=== PATIENT | male | born 2000 | race Caucasian/White ===

== ENCOUNTER 2018-02-17 17:16 | Observation (INO) ==
--- NOTE | 2018-02-17 19:13 | General Surg History&Physical ---
Date of Encounter: 02/17/18 Time of Encounter: 19:11 Assessment and Plan (1) Appendicitis Current Visit: Yes Status: Acute 17M with acute appendicitis NPO IVF abx OR today The assessment and plan as outlined above was discussed with the patient and/or family members who expressed understanding and agreement. All questions were answered. Qualifiers: Appendicitis type: acute appendicitis Acute appendicitis type: with localized peritonitis Qualified Code(s): K35.3 - Acute appendicitis with localized peritonitis History of Present Illness Chief complaint: abdominal pain HPI: Mr. Ashford is a 17 year old male with one day history of periumbilical pain with migration to the RLQ with associated nausea and vomiting. Subjective chills, no definitive fever. A CT scan was obtained at an OSH, which was evaluated by me, which demonstrated thickening of the appendix with associated periappendiceal fluid and appendicolith. Past Med Surg Social Fam HX - Past Medical History Medical history: no medical history Psychiatric history: no psych history - Past Surgical History Surgical History: no surgical history - Social History Smoking Status: Never smoker Smokeless Tobacco Status: Yes Alcohol use: none Drug use: none Medications and Allergies 3 Allergy/AdvReac Type Severity Reaction Status Date / Time No Known Allergies Allergy Verified 11/29/16 00:32 Review of Systems All systems PM: The remainder of the systems were reviewed and are negative General Surgery Exam Initial Vital Signs Temp Pulse Resp BP Pulse Ox 98.6 F 73 14 133/73 99 02/17/18 19:02 02/17/18 19:02 02/17/18 19:02 02/17/18 19:02 02/17/18 19:02 - General physical appearance no distress - Eyes normal ocular movement - ENT normocephalic - Neck no lymphadectomy - Respiratory normal expansion, normal respiratory effort - Cardiovascular Cardiovascular exam: Present: RRR - Abdomen Abdomen general surgery: Present: soft, tender Abdominal Tenderness: Present: RLQ (at McBurney's point) - Integumentary Integumentary general surgery: Present: warm and dry - Neurologic Present: CN 2-12 grossly intact - Musculoskeletal Present: normal gait, normal posture - Psychiatric Psychiatric general surgery: Present: A&Ox3 Results - Labs All other labs normal. - Imaging CT scan - abdomen: report reviewed, image reviewed CT scan - pelvis: report reviewed, image reviewed
[2018-02-17] MEDS ORDERED: Ondansetron ODT 4 MG TAB.RAPDIS SL PRN ×2 (19:14→22:05)
[2018-02-17] MEDS ORDERED: OXYCODONE Oral CONC 10 MG/0.5 ML ORAL.SYG SL PRN ×2 (19:14→22:05)
[2018-02-17] MEDS ORDERED: D5% in 0.45% NACL w KCl 20 MEQ/1,000 ML MLS IVC SCH (19:15)
[2018-02-17] MEDS ORDERED: *HR* Promethazine 25 MG/ML VIAL IVP PRN (19:38)
[2018-02-17] MEDS ORDERED: *HR* Meperidine 25 MG/ML SYRINGE IVP PRN (19:38)
[2018-02-17] MEDS ORDERED: Naloxone 0.4 MG/ML INJ IVP PRN ×2 (19:38→22:05)
[2018-02-17] MEDS ORDERED: *HR* FentaNYL (PF) 100 MCG/2 ML VIAL IVP PRN (19:38)
[2018-02-17] MEDS ORDERED: Ondansetron 4 MG/2 ML VIAL IVP ONE (19:38)
[2018-02-17] MEDS ORDERED: *HR* OxyCODONE Immed Rel 5 MG TABLET PO PRN (19:38)
--- NOTE | 2018-02-17 19:38 | Anesthesia Evaluation PreOp ---
Date of Encounter: 02/17/18 Time of Encounter: 19:36 - Past History Planned Operation: Lap appendectomy Cardiac History: Denies any Significant Hx Pulmonary History: Denies Any Significant HX DRAFTING CLERK History: Denies Any Significant HX Other Medical History: Denies Any Significant HX, Other (BMI 32) Anesthesia History: Past Anesthesia (none, no known family of anes complications ) Alcohol Use: none Drug use: none Medications and Allergies 3 Allergy/AdvReac Type Severity Reaction Status Date / Time No Known Allergies Allergy Verified 11/29/16 00:32 - Meds/Allergy Pre-op Review Medications Reviewed: Yes Allergies Reviewed: Yes Beta Blockers on Current Med List: No Anesthesia Results - Labs Laboratory Tests 02/17/18 02/17/18 14:50 14:50 WBC 13.1 H Hgb 15.7 Hct 46.5 Plt Count 169 Sodium 138 Potassium 3.8 Chloride 100 Carbon Dioxide 32 H BUN 15 Creatinine 0.99 Anesthesia Exam Vital Signs/O2 Sat, Most Current Temp Pulse Resp BP Pulse Ox 98.6 F 73 14 133/73 99 02/17/18 19:02 02/17/18 19:02 02/17/18 19:02 02/17/18 19:02 02/17/18 19:02 Weight: 117kg - HEENT Pupil (Motor): Pupils equal, EOMI Mallampati: II Teeth: Normal Oral Opening: Greater than 3 - DRAFTING CLERK LOC: Oriented DRAFTING CLERK Motor: Normal RUE, Normal LUE, Normal RLE, Normal LLE, Normal Face DRAFTING CLERK Sensory: Normal: RUE, LUE, RLE, LLE, Face - Cardiac Rhythm: Regular - Pulmonary Breath Sounds: bilateral Clear Respiratory Effort: Symmetrical Anesthesia Assess/Plan ASA Score: 2, E Modified Christin Scale for Level of Consciousness: Cooperative, oriented, and tranquil Anesthetic Plan: General Monitoring Plan: Standard Monitors Recovery Plan: PACU
[2018-02-17] MEDS ORDERED: Lidocaine -MPF 2% 2 ML VIAL ONE ×2 (19:43→19:49)
[2018-02-17] MEDS ORDERED: *HR* Rocuronium Bromide 50 MG/5 ML VIAL ONE (19:43)
[2018-02-17] MEDS ORDERED: *HR* Succinylcholine 200 MG/10 ML VIAL IVP ONE (19:43)
[2018-02-17] MEDS ORDERED: *HR* Propofol 200 MG/20 ML VIAL IVP ONE ×2 (19:43→19:45)
[2018-02-17] MEDS ORDERED: Lidocaine -MPF 1% 5 ML AMPUL ONE (19:43)
[2018-02-17] MEDS ORDERED: Ringers Solution, Lactated 1,000 ML IVC SCH (19:45)
[2018-02-17] MEDS ORDERED: Acetaminophen IV 1,000 MG/100 ML INFUS..BTL ONE (19:56)
[2018-02-17] MEDS ORDERED: CefOXitin 2,000 MG VIAL ONE (20:16)
[2018-02-17] MEDS ORDERED: Ondansetron 4 MG/2 ML VIAL ONE (20:31)
[2018-02-17] MEDS ORDERED: Dexamethasone 4 MG/ML VIAL ONE (20:31)
[2018-02-17] MEDS ORDERED: Neostigmine Methylsulfate 3 MG/3 ML SYRINGE ONE (20:32)
--- NOTE | 2018-02-17 21:18 | Operative Note ---
Date of procedure: 02/17/18 Pre-op diagnosis: acute appendicitis Post-op diagnosis: same Procedure: laparoscopic appendectomy Implants: none Complications: none Anesthesia: GETA Local Anesthetics: 0.5% Sensorcaine HCL SubQ (cc) Surgeon: Ferny Turner Was there an journeyman operator assistant present: No Estimated blood loss (cc): 5 Specimen: appendix Condition: stable Disposition: PACU Procedure in Detail: The patient was brought into the operating room suite. The patient was placed in the supine position. Mechanical DVT prophylaxis was initiated. The patient underwent smooth induction of general endotracheal anesthesia. The patient was prepped and draped in the usual fashion. Preoperative antibiotics were given. A timeout was held identifying the correct patient, pathology, and procedure. Everyone was in agreement and we began a procedure. Incision to Mesenteric Window I started bycreating a supraumbilical incision and via open Ervin technique entered into the abdomen. I then used a Vicryl suture on a UR 6 needle in a [id number] fashion to reapproximate but not close the fascia. I then inserted the 10 trocar followed by the camera to visualize the intraabdominal cavity. I then created a 5 mm incision suprapubically and inserted the 5 mm trocar under direct visualization. Roughly 1 handbreadth lateral to the umbilical incision I created another 5 mm incision and inserted another 5 mm trocar under direct visualization. I then inserted the nontraumatic instruments into the 5 mm ports and began the procedure. I was able to identify the tinea coli coalescing at the base of the cecum to identify the appendix. Using the nontraumatic grasper I was able to grasp the appendix and then using the [place] dissector was able to create a mesenteric window. Mesenteric Window to Appendectomy I then inserted the nontraumatic grasper into the same mesenteric window to widen it. I then grasped the appendix and switched from the 10 mm camera to the 5 mm camera so that we can insert the stapler through the umbilical port. The teeth of the stapler through the mesenteric window. It should be stated that the stapler was a 45 mm bowel load stapler. It was positioned at the base of the appendix and I was able to confirm under direct visualization that the teeth contained no other structures such as the cecum. I then fired the stapler and resected the appendix from the base of the cecum. I then loaded up a vascular load stapler and then in the similar fashion did fire across the mesentery. Retrieval to Closure I then inserted the Endo Catch bag to retrieve the specimen which was intact upon retrieval. I then switched back to the 10 mm camera and inserted the nontraumatic grasper as well as a suction-inhalation therapy teacher into the 5 mm ports. And under direct visualization I was able to appreciate the staple line of the mesoappendix as well as the staple line of the base of the cecum. There was no obvious leaking nor bleeding. The pelvis did not have any collection of fluid. I then concluded the procedure, turned off the insufflation, removed the trochars under direct visualization, and then closed the umbilical fascia using the Vicryl suture that was placed at the beginning. I then closed all incisions with interrupted 4-0 Monocryl. And then sealed with Dermabon. It should be stated that I did use 0.5% Marcaine as a local anesthetic. The patient tolerated the procedure well and did go back to PACU in stable condition.
--- NOTE | 2018-02-17 22:04 | Anesthesia Evaluation Post Op ---
Date of Encounter: 02/17/18 Time of Encounter: 22:03 - Vital Signs Vital Signs: Vital Signs/O2 Sat, Most Current Temp Pulse Resp BP Pulse Ox 98.8 F 61 16 135/75 99 02/17/18 21:52 02/17/18 21:52 02/17/18 21:52 02/17/18 21:52 02/17/18 21:52 - Lungs Lungs: Clear Ascult./Percussion - Airway Airway: Non-obstructed - Cardiovascular Regular Rate - Mental Status Mental Status: Alert & Oriented, Answers Appropriately - Pain Pain Scale: 0 Pain Scale used: Numeric (1 - 10) - Nausea Vomiting Nausea Vomiting: Not Present - Hydration Hydration: NPO - Discharge PostOp Status: Transfer Patient to floor Attestation: I have assessed this patient and find they meet discharge criteria.
[2018-02-17] MEDS: D5% in 0.45% NACL w KCl 20 MEQ/1,000 ML MLS IVC SCH (22:55)
[2018-02-17] MEDS: *HR* Heparin 5,000 UNIT/ML VIAL SQ SCH (22:56)
[2018-02-18] MEDS ORDERED: Piperacillin/Tazobactam 3.375 GM in 0.9 % Sodium Chloride Mini Bag 100 ML IVPB SCH
[2018-02-18] MEDS: *HR* Heparin 5,000 UNIT/ML VIAL SQ SCH (06:06)
[2018-02-18] MEDS: D5% in 0.45% NACL w KCl 20 MEQ/1,000 ML MLS IVC SCH (07:30)
--- NOTE | 2018-02-18 07:34 | Discharge Summary ---
Orders not resulted at time of discharge: Pending orders 02/17/18 20:43 Surgical Pathology [PTH] Routine Date of Encounter: 02/18/18 Time of Encounter: 08:08 - Discharge Diagnosis (1) Acute appendicitis Priority: Primary Status: Acute Qualifiers: Acute appendicitis type: with localized peritonitis Qualified Code(s): K35.3 - Acute appendicitis with localized peritonitis (2) Problem involving surgical incision Priority: Secondary Status: Acute Comments: minor superficial opening (dermal glue failed). Steri-strips applied. No evidence of infection. General Surgery Exam Initial Vital Signs Temp Pulse Resp BP Pulse Ox 98.6 F 73 14 133/73 99 02/17/18 19:02 02/17/18 19:02 02/17/18 19:02 02/17/18 19:02 02/17/18 19:02 Vital Signs Temp Pulse Resp BP Pulse Ox 02/18/18 06:30 98.0 F 77 15 127/69 97 02/18/18 03:28 98.4 F 84 14 119/67 98 02/17/18 22:30 65 131/75 97 02/17/18 22:15 97.6 F 85 18 141/72 97 02/17/18 21:57 63 121/74 99 02/17/18 21:52 98.8 F 61 16 135/75 99 02/17/18 21:42 58 16 134/77 99 02/17/18 21:41 97.9 F 60 18 99 02/17/18 21:32 70 16 142/71 99 02/17/18 21:22 97.9 F 81 16 136/79 100 02/17/18 19:02 98.6 F 73 14 133/73 99 Intake and Output 02/17/18 02/18/18 02/18/18 23:59 07:59 15:59 Intake Total 965 / 965 1000 / 1000 Output Total 465 / 465 750 / 750 Balance 500 / 500 250 / 250 Intake: IV Fluids 1000 / 1000 KCl 20mEq IN D5%-0.45 NACL 20 1000 / 1000 meq In 1,000 ml @ 125 mls/hr IVC .Q8H [facility] Rx#:[id number] Oral 240 / 240 0 / 0 Other 725 / 725 Output: Urine 460 / 460 750 / 750 Estimated Blood Loss 5 / 5 Other: Weight 117.934 kg 118 kg Patient Weight 02/18/18 23:59 Weight 118 kg VITAL SIGNS: Reviewed. See [facility] GENERAL: In no apparent distress. HEENT: Normocephalic, atraumatic, pupils are equal and reactive, extraocular motions intact, oropharynx is pink and moist, there is no neck adenopathy or JVD noted. CHEST/RESPIRATORY: The thorax is free from signs of trauma. Lung sounds: clear to auscultation, normal respiratory effort CARDIAC: Regular rate and rhythm. Normal S1 and S2, without murmurs, gallops, or rubs. VASCULAR: No Edema. 2+ peripheral pulses. ABDOMEN: soft, expected postoperative tenderness, hypoactive bowel sounds INCISION: Surgical incision is clean, dry, and intact overall. There is minimal superficial disruption at the umbilicus. The area was cleansed, Mastisol and Steri-Strips applied, covered with a dry dressing. There are no signs of cellulitis or infection noted. MUSCULOSKELETAL: Good range of motion of all major joints. Extremities without clubbing, cyanosis or edema. NEUROLOGIC EXAM: Alert and oriented x 3. Speech normal. Follows commands. PSYCHIATRIC: Mood normal. SKIN: No rash or lesions. - Hospital Course Hospital course: Mr. Ashford is a 17 year old male who presented on 02/17/2018 with complaints of right lower quadrant pain and periumbilical pain. His CT demonstrated thickening of the appendix periappendiceal fluid and appendicolith. He was taken to the OR where he underwent an uncomplicated laparoscopic appendectomy by Dr. Turner. 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 The area was cleansed, Mastisol, and steri-strips applied. Covered with a dry dressing. He is ambulating and voiding without difficulty, tolerating a diet without nausea or vomiting, vital signs are stable, afebrile, and abdominal discomfort is controlled. We will begin discharge planning to home with a follow-up in the office in 10 to 14 days. - Time Spent with Patient Total time spent providing and/or coordinating discharge services: - Discharge Medications Prescriptions: Amoxicillin/Clavulanate [Augmentin] 875 mg PO BIDWM 5 Days #9 tablet Docusate Sodium [Colace] 100 mg PO BID 15 Days #30 capsule HYDROcodone/Acet 5/325 mg [Alma 5-325 mg] 1 tab PO Q6H PRN 7 Days #28 tab PRN Reason: Moderate pain Ibuprofen 800 mg PO Q8H PRN #60 tablet PRN Reason: Mild Pain Home Medications: Amoxicillin/Clavulanate [Augmentin] 875 mg PO BIDWM 5 Days #9 tablet 02/18/18 [ Rx] Docusate Sodium [Colace] 100 mg PO BID 15 Days #30 capsule 02/18/18 [Rx] HYDROcodone/Acet 5/325 mg [Alma 5-325 mg] 1 tab PO Q6H PRN 7 Days #28 tab 02/18 [Rx] Ibuprofen 800 mg PO Q8H PRN #60 tablet 02/18/18 [Rx] Allergies/Adverse Reactions: 3 Allergy/AdvReac Type Severity Reaction Status Date / Time No Known Allergies Allergy Verified 11/29/16 00:32 Date of admission: 02/17/18 18:34 Primary care physician: Justina Ledesma Discharging clinician: Phyllis Soler Anticipated date of discharge: 02/18/18 - Patient Status Disposition: Home, Self-Care Condition: Good Functional capacity at discharge: independent ambulation Overall status at discharge: patient is progressing back to baseline - Discharge Instructions Instructions: Laparoscopic Appendectomy (DC) Follow Up With: Justina Ledesma MD [Primary Care Provider] - Ferny Turner MD [Non-Partnered Physician] - 03/01/18 4:15 pm Forms: Inpatient Work/School Release Additional Instructions: General Surgical Discharge Instructions 1. No pushing, pulling, or lifting greater than 15 lbs for 2-4 weeks (depending upon procedure). 2. You may shower beginning today, but no tub baths, soaking, or swimming for 2 weeks. 3. You may resume driving when you are off narcotics and are safe to react in a car. Do not operate heavy machinery until you are seen in follow-up. 4. Take ibuprofen every 8 hours for discomfort (Next dose after 4pm). If this does not relieve discomfort, you may take the as needed Alma. Take narcotics as directed. Do not take more narcotics then directed and do not share your narcotics with any other person. Do not drink alcohol while on narcotics. 5. Take stool softeners (Colace) or a water based laxative (Miralax) while taking narcotics. You may hold for loose stools. 6. Report any fevers greater than 100.5F, increase abdominal discomfort, drainage that looks like pus, increased redness or pain at the surgical site, or any vomiting. 7. Report any pain in the calves, shortness of breath, or rapid heartbeat. 8. Follow-up in the office as directed. 9. We are prescribing antibiotics for prevention of possible infection since your skin opened up. Take as directed. (Next dose due at dinner time). - Diet and Activity Activity: increase activity as tolerated Diet: advance to your usual diet
[2018-02-18] MEDS ORDERED: Ibuprofen 800 MG TABLET PO STA (08:05)
[2018-02-18 10:37] VITALS: BP 127/69
== END 2018-02-18 08:34 | disposition home or self-care (01) ==
LOC: 3ANU
PROVIDERS: ADMIT Surgery; ATTEND Surgery